=== PATIENT | female | born 1990 | race Caucasian/White ===

== ENCOUNTER 2018-04-10 17:06 | Emergency (ER) | payer OTHER ==
[2018-04-10 17:12] VITALS: BP 122/75
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
--- NOTE | 2018-04-11 17:39 | ASMTCAGE ---
CAGE Additional Comments Reviewed chart. Positive SBIRT. No MD notes regarding ETOH abuse. CM unable to screen pt; pt discharged prior to being seen by CM. Date Signed: 04/11/2018 05:39 PM Electronically Signed By:Lashawn Samaniego RN
== END 2018-04-10 18:21 | disposition home or self-care (01) ==
DX: S16.1XXA Strain of muscle, fascia and tendon at neck level, initial encounter (principal); S30.1XXA Contusion of abdominal wall, initial encounter; S09.90XA Unspecified injury of head, initial encounter; V49.49XA Driver injured in collision with other motor vehicles in traffic accident, initial encounter; Y92.410 Unspecified street and highway as the place of occurrence of the external cause; Y93.9 Activity, unspecified; Y99.9 Unspecified external cause status